=== PATIENT | female | born 1935 | race Caucasian/White ===

== ENCOUNTER 2019-06-18 11:14 | Inpatient (IN) ==
[2019-06-18 11:54] LABS: BASO# 0.02 X1000 (0.0-0.2); BASO% 0.3 % (0.0-0.8); EOS# 0.16 X1000 (0.0-0.7); EOS% 2.4 % (0.0-10.0); HEMATOCRIT 36.5 % (37.0-47.0); HEMOGLOBIN 11.1 g/dL (12.0-16.0); IMM GRAN# 0.01 X1000 (0.0-0.04); IMM GRAN% 0.1 % (0.0-0.5); LYMPH# 1.37 X1000 (1.2-3.4); LYMPH% 20.3 % (20.5-51.1); MCH 31.5 PG (27-31); MCHC 30.4 g/dL (33-37); MCV 103.7 FL (81-99); MONO# 0.69 X1000 (0.11-0.59); MONO% 10.2 % (1.7-9.3); MPV 11.4 FL (7.4-10.4); NEUT# 4.49 X1000 (1.4-6.5); NEUT% 66.7 % (42.2-75.2); PLT 196 X1000 (130-400); RBC 3.52 XMIL (4.2-5.4); RDW 13.6 % (11.5-14.5); WBC 6.74 X1000 (4.8-10.8)
[2019-06-18 11:58] LABS: INFLUENZA A NEGATIVE (NEGATIVE); INFLUENZA B NEGATIVE (NEGATIVE)
[2019-06-18 12:08] LABS: INR 0.84; PROTIME 11.9 Seconds (11.0-16.0)
[2019-06-18 12:09] LABS: PTT 31.2 Seconds (22.3-41.8)
[2019-06-18 12:17] LABS: ALBUMIN 4.3 g/dL (3.5-5.0); CREATININE 1.1 mg/dL (0.5-0.9); POTASSIUM 4.4 mmol/L (3.5-5.1); TOTAL BILIRUBIN 0.3 mg/dL (0.20-1.00); TOTAL PROTEIN 6.7 g/dL (6.3-8.3)
[2019-06-19 05:20] LABS: HEMATOCRIT 32.9 % (37.0-47.0); HEMOGLOBIN 9.6 g/dL (12.0-16.0); MCH 30.8 PG (27-31); MCHC 29.2 g/dL (33-37); MCV 105.4 FL (81-99); MPV 11.5 FL (7.4-10.4); RBC 3.12 XMIL (4.2-5.4); RDW 13.5 % (11.5-14.5); WBC 5.22 X1000 (4.8-10.8)
[2019-06-19 05:40] LABS: URINE SOURCE CLEAN CATCH
[2019-06-19 05:46] LABS: BILIRUBIN URINE NEGATIVE (NEGATIVE); BLOOD URINE NEGATIVE (NEGATIVE); COLOR YELLOW; GLUCOSE URINE NEGATIVE (NEGATIVE); KETONE URINE TRACE mg/dL (NEGATIVE); LEUKOCYTES URINE TRACE (NEGATIVE); NITRITE URINE NEGATIVE (NEGATIVE); PROTEIN URINE NEGATIVE (NEGATIVE); SP GRAVITY URINE 1.017; TURBIDITY URINE CLEAR (CLEAR); UROBILINOGEN URINE NORMAL (NORMAL)
[2019-06-19 05:47] LABS: UR EPITHELIAL CELLS <10 /HPF (<10); URINE BACTERIA NEGATIVE /HPF; URINE RBC <10 /HPF (<10); URINE WBC <10 /HPF (<10)
[2019-06-19 06:24] VITALS: BP 109/68
== END 2019-06-19 13:15 | disposition home or self-care (01) | DRG 191 ==
LOC: P.ED 11:14 → SUATTDRO 11:15 → P.MEDSURG 14:36
PROVIDERS: ATTEND Internal Medicine